=== PATIENT | male | born 1945 | race Caucasian/White ===

== ENCOUNTER 2024-11-10 11:13 | Emergency (ER) | payer MEDICARE, BC, SELFPAY ==
[2024-11-10 11:29] VITALS: BP 188/98; PULSE 73; RESP 18; TEMP 36.6; O2SAT 96
--- NOTE | 2024-11-10 11:33 | PD.EDADULT ---
ED General RME/HPI General Chief complaint: General Adult/Misc Complain Stated complaint: BLOOD CLOT IN LEFT LEG Time Seen by Provider: 11/10/24 11:19 Arrival date/time: 11/10/24 11:13 RME / HPI RME / HPI narrative: 79-year-old male patient with significant history of hypertension, was sent to us by his PCP for evaluation regarding DVT left lower extremity. Patient's been having swelling to the left lower extremity, about 15 days, getting worse, severity moderate. Patient denies any redness. Denies any pain. Denies any trauma. Denies any other complaints. Patient denies any chest pain. Denies any shortness of breath. Patient is not taking anything for bradycardia. Related Data Home Medications ?Medication ?Instructions ?Recorded ?Confirmed bisoprolol 5 2 tab PO QDAY 09/28/21 09/28/21 mg-hydrochlorothiazide 6.25 mg tablet hydrocodone 5 mg-acetaminophen 325 1 tab PO Q4HR PRN Moderate Pain 09/28/21 09/28/21 mg tablet (Scale Score 5-6) Previous Rx's ?Medication ?Instructions ?Recorded ibuprofen 600 mg tablet 600 mg PO Q6H PRN fever or pain 09/28/21 #14 tabs apixaban 5 mg tablet (Eliquis) 5 mg PO BID #60 tabs 11/10/24 apixaban 5 mg tablet (Eliquis) 10 mg (2 x 5 mg) PO BID 7 days #28 11/10/24 tabs Allergies Allergy/AdvReac Type Severity Reaction Status Date / Time No Known Allergies Allergy Verified 09/28/21 12:50 Review of Systems Review of Systems Narrative Review of Systems: Review of system reviewed and within normal limits except mentioned in HPI ED Exam Narrative Physical exam: VITAL SIGNS: Reviewed. GENERAL APPEARANCE: Alert and interactive, follows commands, no acute distress, HEAD AND FACE: Non-traumatic. ENT: PERRL, pink conjunctivitis, eyelid no trauma, Mucous membrane moist. NECK: Supple, nontender, no nuchal rigidity. CHEST: No tenderness, no crepitus, no paradoxical movement, no retractions. LUNGS: Clear, well ventilated, symmetric, no rales, no wheezing, no ronchi, no stridor, good breath sounds bilaterally. HEART: Regular rate, regular rhythm, no murmur, no gallops. ABDOMEN: Soft, positive bowel sounds, nondistended, no guarding, nontender, no rebound, no masses, RECTAL: Deferred. GENITAL: Deferred. NEUROLOGICAL: Gross motor function intact sensory function intact, Appropriate for age. MUSCULOSKELETAL: low back nontender, full range of motion. EXTREMITIES: Swelling, left lower extremity no redness nontender full range of motion. Distal neurovascular status intact SKIN: Color pink, dry, no rash, no lacerations, no abrasions, no contusions. LYMPHATICS: Deferred. Course Quality Measures none Orders Category Date Time Status CBC [CBC] Stat Lab 11/10/24 11:37 Completed CMP [Comprehensive Metabolic Panel] Stat Lab 11/10/24 11:37 Completed PT [Prothrombin Time with INR] Stat Lab 11/10/24 11:37 Completed PTT [Partial Thromboplastin Time] Stat Lab 11/10/24 11:37 Completed Apixaban [Eliquis] Med 11/10/24 12:25 Discontinued 10 mg PO X1 ONE Vital Signs Vital signs: Vital Signs Temperature 98 F 11/10/24 11:29 Pulse Rate 73 11/10/24 11:29 Respiratory Rate 18 11/10/24 11:29 Blood Pressure 188/98 H 11/10/24 11:29 Pulse Oximetry (%) 96 11/10/24 11:29 Oxygen Delivery Method Room Air 11/10/24 11:29 [facility] Patient data External records reviewed:: None Clinical information provided by:: patient Social determinants that could affect healthcare access:: none Patient has the following chronic illnesses:: Hypertension How is presenting disease/condition affected by chronic disease/condition?: uneffected by Evaluation data The following diagnostics were reviewed and interpreted by me:: lab results and radiology exam(s) Lab and/or radiology exams considered but not ordered:: None Interpretation Summary: None Medications Medications considered but not ordered:: None Medication administrations:: Medication Administration History Discontinued Medications Apixaban (Apixaban 2.5 Mg Tablet) 10 mg PO X1 ONE Stop: 11/10/24 12:26 Last Admin: 11/10/24 12:42 Dose: 10 mg Documented By: SARITA Eliquis Consultations Consultation(s) initiated? (list below): No Diagnosis Differential Diagnosis ED Complaint MDM: Leg edema, DVT, cellulitis Most likely diagnosis given after review of the tests above:: DVT Admission Indicated Admission indicated?: not indicated Explain why admission is indicated or not indicated:: Stable Admission Request Was there a request for admission?: No Disposition Plan Disposition Plan: Discharge Discharge Attestation Discharge Attestation: The patient was given an opportunity to ask questions and understood the discharge instructions. Discharge instructions specifically effects, indications for sooner follow up or return to the emergency department, and the expected course of current diagnosis. Patient condition: Stable Medical Decision Making MDM Narrative MDM Narrative: 79-year-old male patient with significant history of hypertension, was sent to us by his PCP for evaluation regarding DVT left lower extremity. Patient's been having swelling to the left lower extremity, about 15 days, getting worse, severity moderate. Patient denies any redness. Denies any pain. Denies any trauma. Denies any other complaints. Patient denies any chest pain. Denies any shortness of breath. Patient is not taking anything for bradycardia. I reviewed patient's outpatient ultrasound the leg showed extensive DVT to the left lower extremity. Laboratory workup all came back unremarkable creatinine is normal Patient received first dose of Eliquis in the emergency room 10 mg x 1 Patient appears nontoxic and hemodynamically stable. Patient discharged home and instructed to follow-up with primary care provider in 24 to 48 hours. Instructed to return to the emergency department immediately if worsening of symptoms Differential Diagnosis Differential Diagnosis: Leg edema, DVT, cellulitis Lab Data 11/10/24 11:37 11/10/24 11:37 Labs: Lab Results 11/10/24 Range/Units 11:37 WBC 8.9 (3.8-10.6) Thou/mm3 RBC 5.19 (4.50-5.90) Miln/mm3 Hgb 16.2 H (13.5-16.0) g/dL Hct 47.4 (41.0-53.0) % MCV 91 (80-100) fL MCH 31.2 (25.0-35.0) pg MCHC 34.2 (31.0-37.0) g/dl RDW Std Deviation 45.9 H (35.1-43.9) fL Plt Count 228 (140-440) Thou/mm3 Neut % (Auto) 51 (37-80) % Lymph % (Auto) 33 (10-50) % [place] % (Auto) 11 (0-12) % Eos % (Auto) 4 (0-10) % Baso % (Auto) 1 (0-2.5) % Neut # (Auto) 4.5 (1.8-7.7) Thou/mm3 Lymph # (Auto) 3.0 (1.0-4.8) Thou/mm3 [place] # (Auto) 1.0 H (0.0-0.8) Thou/mm3 Eos # (Auto) 0.3 (0.0-0.5) Thou/mm3 Baso # (Auto) 0.1 (0.0-0.2) Thou/mm3 Immature Gran # (Auto) 0.05 H (0.00-0.00) Thou/mm3 Absolute Nucleated RBC 0.00 (0.00-0.00) Thou/mm3 Immature Gran % 1 H (0-0) % Nucleated RBC % 0 (0) /100 WBC PT 11.2 (9.0-12.2) Seconds INR 1.0 (0.9-1.3) APTT 24.5 (22.0-36.0) Seconds Sodium 140 (136-145) mMol/L Potassium 4.6 (3.4-5.1) mMol/L Chloride 107 (98-107) mMol/L Carbon Dioxide 25.4 (20.0-31.0) mMol/L Anion Gap 8 (7-16) BUN 16 (9-23) mg/dL Creatinine 1.2 (0.6-1.3) mg/dL Estim Creat Clear Calc Not Performed. eGFR > 60 (60 - ) See Note BUN/Creatinine Ratio 13 (12-20) Ratio Glucose 144 H (74-106) mg/dL Calculated Osmolality 283 (275-295) Calcium 10.0 (8.3-10.6) mg/dL Corrected Calcium 10.0 (8.5-10.1) mg/dL Total Bilirubin 1.1 (0.3-1.2) mg/dL AST 49 H (0-34) U/L ALT 52 H (10-49) U/L Alkaline Phosphatase 73 (46-116) U/L Total Protein 7.7 (5.7-8.2) gm/dL Albumin 4.6 (3.4-4.8) gm/dL Globulin 3.1 (2.3-3.5) gm/dL Albumin/Globulin Ratio 1.5 (1.2-2.2) Discharge Plan Plan Patient Disposition: HOME (Self Care) Disposition Comment: stable Prescriptions/Referrals Prescriptions/Med Rec: New Eliquis 5 mg tablet 10 mg PO BID 7 Days Qty: 28 0RF Eliquis 5 mg tablet 5 mg PO BID Qty: 60 0RF Rx Instructions: Start 5 mg twice twice a day after you finish the 1 week of 10 mg twice daily No Action hydrocodone-acetaminophen 5-325 mg tablet 1 tab PO Q4HR PRN (Reason: Moderate Pain (Scale Score 5-6)) Patient Comments: TAKE 1 TABLET BY MOUTH EVERY 6 HOURS bisoprolol-hydrochlorothiazide 5-6.25 mg Tablet 2 tab PO QDAY ibuprofen 600 mg tablet 600 mg PO Q6H PRN (Reason: fever or pain) Qty: 14 0RF Referrals: Trey Rubi MD [Primary Care Provider] - In 1 week Problem List Clinical Impression: DVT of leg (deep venous thrombosis) Patient/Caregiver Discharge Instructions Education Materials: DVT Dc Additional Instructions: Thank you for the opportunity for serving you today. You are stable for discharged . You are advised to: Follow-up with your PCP in 1 to 2 days Return to ED for worsening of symptoms Increase oral fluids Take medication as prescribed Do not massage your leg as instructed Elevate your leg as needed Wear compression stocking as needed during the day remove it during the night Print Language: Cypriot Stand Alone Forms: Bianka Award Info., Patient Portal Info Letter PA/NOY Supervising Physician NANDINI/NOY Supervising Physician: sandy Hess
[2024-11-10 11:57] LABS: Basophils # (Auto) 0.1 Thou/mm3 (0.0-0.2); Basophils % (Auto) 1 % (0-2.5); Eosinophils # (Auto) 0.3 Thou/mm3 (0.0-0.5); Eosinophils % (Auto) 4 % (0-10); Hematocrit 47.4 % (41.0-53.0); Hemoglobin 16.2 g/dL (13.5-16.0); Immature Granulocytes % (Auto) 1 % (0-0); Immature Granulocytes Auto 0.05 Thou/mm3 (0.00-0.00); Lymphocytes % (Auto) 33 % (10-50); Mean Corpuscular HGB Conc 34.2 g/dl (31.0-37.0); Mean Corpuscular Hemoglobin 31.2 pg (25.0-35.0); Mean Corpuscular Volume 91 fL (80-100); Monocytes % (Auto) 11 % (0-12); Neutrophils # (Auto) 4.5 Thou/mm3 (1.8-7.7); Neutrophils % (Auto) 51 % (37-80); Nucleated Red Blood Cell % 0 /100 WBC (0); Platelet Count 228 Thou/mm3 (140-440); RDW Standard Deviation 45.9 fL (35.1-43.9); Red Blood Count 5.19 Miln/mm3 (4.50-5.90); White Blood Count 8.9 Thou/mm3 (3.8-10.6)
[2024-11-10 12:15] LABS: Partial Thromboplastin Time 24.5 Seconds (22.0-36.0); Prothrombin Time 11.2 Seconds (9.0-12.2)
[2024-11-10 12:20] LABS: Alanine Aminotransferase 52 U/L (10-49); Albumin, Serum 4.6 gm/dL (3.4-4.8); Albumin/Globulin Ratio 1.5 (1.2-2.2); Alkaline Phosphatase 73 U/L (46-116); Anion Gap 8 (7-16); Aspartate Amino Transferase 49 U/L (0-34); BUN/Creatinine Ratio 13 Ratio (12-20); Bilirubin,Total 1.1 mg/dL (0.3-1.2); Blood Urea Nitrogen 16 mg/dL (9-23); Carbon Dioxide 25.4 mMol/L (20.0-31.0); Chloride 107 mMol/L (98-107); Creatinine (Component) 1.2 mg/dL (0.6-1.3); Globulin 3.1 gm/dL (2.3-3.5); Glucose 144 mg/dL (74-106); Osmolality,Calculated 283 (275-295); Potassium 4.6 mMol/L (3.4-5.1); Sodium 140 mMol/L (136-145); Total Protein 7.7 gm/dL (5.7-8.2); eGFR > 60 See Note
[2024-11-10] MEDS: APIXABAN 2.5 MG TABLET 10 MG PO (12:42)
== END 2024-11-10 12:57 | disposition home or self-care (01) ==
PROVIDERS: Nurse Practitioner Family; Emergency Provider Emergency Medicine; PCP Family Medicine
DX: I82.402 Acute embolism and thrombosis of unspecified deep veins of left lower extremity (principal)
CPT/HCPCS: 36415; 80053; 85025; 85610; 85730; 99283; A9270

== ENCOUNTER → 2024-11-10 | Outpatient (CLI) | payer MEDICARE, BC, SELFPAY ==
--- NOTE | 2024-11-10 10:11 | XR_ITS ---
EXAMINATION: US venous doppler LE HISTORY: Left ankle and left leg pain and swelling x2 weeks. History of deep venous thrombosis. COMPARISON: 09/28/2021, bilateral lower extremity venous duplex.. FINDINGS: Bagley scale, color doppler, and spectral waveforms of the left lower extremity veins. Compressible common femoral, proximal greater saphenous, and proximal femoral veins. Flattened waveforms with augmentation. Color Doppler signal intact. There is incomplete compressibility of the mid femoral vein, with only mild color spectral Doppler signal. Beginning with the distal femoral vein and extending through the peroneal and posterior tibial veins, there is complete noncompressibility, with trace to no color and spectral Doppler signal in the popliteal and lower leg deep veins. IMPRESSION: Extensive left lower extremity deep venous thrombosis extending from the mid femoral through the deep calf veins. This demonstrates near complete occlusion from the popliteal vein distally. Clinical correlation for developing phlegmasia is needed. Patient sent to the emergency room following examination. Discussed with Dr. Ayers of the ER at 11:10 AM 11/10/2024.
== END | disposition home or self-care (01) ==
PROVIDERS: PCP Nurse Practitioner Family; Referring Provider Nurse Practitioner Family; Visit Provider Nurse Practitioner Family
DX: I82.412 Acute embolism and thrombosis of left femoral vein (principal); I77.1 Stricture of artery
CPT/HCPCS: 93971